=== PATIENT | female | born 2000 | race Caucasian/White ===

== ENCOUNTER 2021-06-18 21:29 | Emergency (ER) | payer SELFPAY ==
[~2021-06-18] VITALS: Ht 152.4 cm; Wt 60.0 kg
[2021-06-18] MEDS ORDERED: KETOROLAC 60MG/2ML VIAL IM ONE (23:00)
[2021-06-19] MEDS ORDERED: IBUP-2028 MT (00:02)
[2021-06-19 01:19] VITALS: BP 125/80
== END 2021-06-19 01:21 | disposition home or self-care (01) ==
LOC: ER 21:29
DX: S93.505A Unspecified sprain of left lesser toe(s), initial encounter (principal); W22.09XA Striking against other stationary object, initial encounter; Y93.01 Activity, walking, marching and hiking; Y92.018 Other place in single-family (private) house as the place of occurrence of the external cause
CPT/HCPCS: 29515; 73660; 81025; 96372; 99283; J1885; Z7610